=== PATIENT | male | born 1975 | race Native Hawaiian/Other Pacific Islander ===

== ENCOUNTER 2017-07-09 17:57 | Outpatient (CLI) | payer OTHER | END 2017-07-09 18:14 | disposition short-term general hospital (02) | LOC: AMB 17:57 | DX: K08.89 Other specified disorders of teeth and supporting structures (principal) | CPT/HCPCS: A0425; A0427 ==

== ENCOUNTER 2017-07-09 18:21 | Emergency (ER) | payer OTHER ==
[~2017-07-09] VITALS: Ht 188 cm; Wt 111.1 kg
[2017-07-09 21:10] VITALS: BP 109/67; TEMP 97.9
== END 2017-07-09 21:13 | disposition home or self-care (01) ==
LOC: ED 18:21
DX: K02.9 Dental caries, unspecified (principal); K04.7 Periapical abscess without sinus; K05.30 Chronic periodontitis, unspecified
CPT/HCPCS: 99281

== ENCOUNTER 2018-04-11 20:28 | Outpatient (CLI) | payer OTHER | END 2018-04-11 20:42 | disposition short-term general hospital (02) | LOC: AMB 20:28 | DX: K08.89 Other specified disorders of teeth and supporting structures (principal) | CPT/HCPCS: A0425; A0429 ==

== ENCOUNTER 2018-04-11 20:54 | Emergency (ER) | payer OTHER ==
[~2018-04-11] VITALS: Ht 188 cm; Wt 99.8 kg
[2018-04-11 21:15] VITALS: BP 153/102; TEMP 98
== END 2018-04-11 21:58 | disposition home or self-care (01) ==
LOC: ED 20:54
DX: K02.9 Dental caries, unspecified (principal)
CPT/HCPCS: 99281

== ENCOUNTER 2019-02-22 22:23 | Outpatient (CLI) | payer OTHER | END 2019-02-22 22:32 | disposition short-term general hospital (02) | LOC: AMB 22:23 | DX: L55.0 Sunburn of first degree (principal) | CPT/HCPCS: A0425; A0429 ==

== ENCOUNTER 2019-02-22 22:36 | Emergency (ER) | payer OTHER ==
[~2019-02-22] VITALS: Ht 188 cm; Wt 108.9 kg
[2019-02-22 23:43] VITALS: BP 145/89; TEMP 98.5
== END 2019-02-22 23:43 | disposition home or self-care (01) ==
LOC: ED 22:36
DX: L55.0 Sunburn of first degree (principal)
CPT/HCPCS: 99282

== ENCOUNTER 2019-03-13 02:59 | Emergency (ER) | payer OTHER ==
[~2019-03-13] VITALS: Ht 188 cm; Wt 102.1 kg
[2019-03-13 04:01] LABS: PLATELET COUNT 372 K/uL (142-355)
[2019-03-13 04:12] LABS: POTASSIUM 4.1 mmol/L (3.6-5.2)
[2019-03-13 05:08] VITALS: BP 122/68; TEMP 97.8
== END 2019-03-13 05:08 | disposition home or self-care (01) ==
LOC: ED 02:59
PROVIDERS: Internal Medicine
DX: R60.9 Edema, unspecified (principal); M25.572 Pain in left ankle and joints of left foot; M25.571 Pain in right ankle and joints of right foot
CPT/HCPCS: 36415; 80053; 81000; 85027; 99283

== ENCOUNTER 2019-05-18 14:45 | Emergency (ER) | payer OTHER ==
[~2019-05-18] VITALS: Ht 188 cm; Wt 102.1 kg
== END 2019-05-18 16:07 | disposition home or self-care (01) ==
LOC: ED 14:45
DX: H60.8X1 Other otitis externa, right ear (principal)
CPT/HCPCS: 99281; 99282

== ENCOUNTER 2019-11-12 16:33 | Outpatient (CLI) | payer OTHER | END 2019-11-12 16:51 | disposition short-term general hospital (02) | LOC: AMB 16:33 | DX: M79.641 Pain in right hand (principal); S60.311A Abrasion of right thumb, initial encounter; W22.8XXA Striking against or struck by other objects, initial encounter | CPT/HCPCS: A0425; A0426 ==

== ENCOUNTER 2019-11-12 17:02 | Emergency (ER) | payer OTHER ==
[~2019-11-12] VITALS: Ht 188 cm; Wt 108.9 kg
[2019-11-12 17:09] VITALS: TEMP 97.9
[2019-11-12 19:23] VITALS: BP 130/95
== END 2019-11-12 19:23 | disposition home or self-care (01) ==
LOC: ED 17:02
PROC: 2W3GX1Z Immobilization of Right Thumb using Splint (ICD-10-PCS; principal; 2019-11-12)
DX: S62.201A Unspecified fracture of first metacarpal bone, right hand, initial encounter for closed fracture (principal); W22.8XXA Striking against or struck by other objects, initial encounter
CPT/HCPCS: 96372; 99283; J1885

== ENCOUNTER 2019-11-15 16:32 | Emergency (ER) | payer OTHER ==
[~2019-11-15] VITALS: Ht 188 cm; Wt 108.9 kg
[2019-11-15 18:24] VITALS: BP 122/62; TEMP 98
== END 2019-11-15 18:26 | disposition home or self-care (01) ==
LOC: ED 16:32
DX: R60.0 Localized edema (principal); S62.660A Nondisplaced fracture of distal phalanx of right index finger, initial encounter for closed fracture
CPT/HCPCS: 96372; 99283; J0696

== ENCOUNTER 2021-05-08 20:27 | Emergency (ER) | payer OTHER ==
[~2021-05-08] VITALS: Ht 188 cm; Wt 108.0 kg
[2021-05-08 22:20] VITALS: BP 157/99; TEMP 97.1
== END 2021-05-08 22:20 | disposition home or self-care (01) ==
LOC: ED 20:27
DX: S23.41XA Sprain of ribs, initial encounter (principal); X50.1XXA Overexertion from prolonged static or awkward postures, initial encounter; Y92.89 Other specified places as the place of occurrence of the external cause
CPT/HCPCS: 99283

== ENCOUNTER 2021-05-19 03:54 | Emergency (ER) | payer OTHER ==
[~2021-05-19] VITALS: Ht 188 cm; Wt 104.3 kg
[2021-05-19 04:00] VITALS: TEMP 97.9
[2021-05-19 05:25] VITALS: BP 152/88
== END 2021-05-19 05:25 | disposition home or self-care (01) ==
LOC: ED 03:54
DX: K08.89 Other specified disorders of teeth and supporting structures (principal); K02.9 Dental caries, unspecified
CPT/HCPCS: 96372; 99283; J0696; J1885

== ENCOUNTER 2022-12-21 13:07 | Emergency (ER) | payer OTHER ==
[~2022-12-21] VITALS: Ht 188 cm; Wt 120.2 kg
[2022-12-21 13:11] VITALS: BP 125/78; TEMP 98.7
== END 2022-12-21 15:26 | disposition home or self-care (01) ==
LOC: ED 13:07
PROC: 0HQLXZZ Repair Left Lower Leg Skin, External Approach (ICD-10-PCS; principal; 2022-12-21)
DX: S81.812A Laceration without foreign body, left lower leg, initial encounter (principal); W20.8XXA Other cause of strike by thrown, projected or falling object, initial encounter; Y92.89 Other specified places as the place of occurrence of the external cause
CPT/HCPCS: 90715; 96372; 99283

== ENCOUNTER 2023-04-09 20:06 | Emergency (ER) | payer OTHER ==
[~2023-04-09] VITALS: Ht 188 cm; Wt 110.2 kg
[2023-04-09 20:40] VITALS: TEMP 98.2
[2023-04-09 21:20] VITALS: BP 152/84
== END 2023-04-09 21:20 | disposition home or self-care (01) ==
LOC: ED 20:06
DX: M54.50 Low back pain, unspecified (principal); S33.5XXA Sprain of ligaments of lumbar spine, initial encounter; E66.9 Obesity, unspecified; W19.XXXA Unspecified fall, initial encounter
CPT/HCPCS: 99282